=== PATIENT | female | born 1955 | race African-American/Black ===

== ENCOUNTER → 2017-12-18 | Outpatient (CLI) | payer BC ==
[~2017-12-18] VITALS: Ht 170.2 cm; Wt 68.0 kg
[~2017-12-18] MED LIST: ANASTROZOLE1 MG PO; CIPROFLOXACIN500 M1 PO; COREG CR10 MG PO; LANOXIN 0.120.125 M1 PO; LASIX 40 MG TAB40 M2 PO; LIPITOR10 MG PO; NORCO 5-325 TA1 EACH PO
--- NOTE | ~2017-12-18 | P ---
[facility] [place] [address] PROCEDURE REPORT Name: ALEN ALLISON Room #: REG [facility]#: [id number] Admission: 12/18/17 Attend Phys: Joe Watson MD Discharge: Date of : 59 Report #: [id number] THIS REPORT FOR: //name// CC: Joe Mosley PROCEDURE: ICD generator exchange. PREOPERATIVE DIAGNOSIS: Nonischemic cardiomyopathy. POSTOPERATIVE DIAGNOSIS: Nonischemic cardiomyopathy. HISTORY: The patient is a 62-year-old female with a history of a nonischemic cardiomyopathy, which was likely secondary to chemotherapy medications required for her breast cancer. Her ICD is at the elective replacement interval and she is here for generator exchange. ANESTHESIA: The patient underwent MAC anesthesia with no anesthesia related complications. DESCRIPTION OF PROCEDURE: The patient underwent informed consent. We discussed the details of the procedure including the risk, which include but not limited to bleeding, infection, need for possible lead revision. She understood these risks and is willing to proceed. As such, the patient was brought to the EP laboratory in a fasting and sedated state and prepped and draped in a sterile fashion. She received IV antibiotics prior to the initiation of the procedure. Next, I injected lidocaine at the prior incision site. Incision was made and the pocket was opened. The device was removed from the pocket and the leads were inspected and found to be in satisfactory condition. The new device was connected to the leads and tested and found to be functioning normally. The device was placed in the pocket and the pocket was irrigated with vancomycin and then, the pocket was closed in 3 layers using 2-0 for the deep layer, 3-0 for the mid layer and 4-0 for the subcuticular layer. Surgical glue was placed to the outer skin layer. There were no complications and no significant bleeding. The patient awoke neurologically hemodynamically intact with no complications. DEVICE INTERROGATION: The explanted device was a [employer] model #[id number], serial #[id number] originally implanted on 12/22/2008. The newly implanted device was a [employer] model #[id number], serial #[id number]. The RV lead was a [employer] model #7120, serial #[id number]. This lead was implanted on 12/22/2008. This lead demonstrated R-wave of 12 millivolts, pacing impedance of 390 ohms and the pacing threshold 1 volt at 0.6 milliseconds. The device was programmed to the VVI 40 mode. The VT1 zone was set at 150-180. The VT2 zone was set at 180-220 and the VF zone was set at greater than 220. The VT1 zone was a monitor zone. The VT2 zone had ATP x [address] [address] PROCEDURE REPORT Name: ALEN ALLISON [id number] Admission: 12/18/17 Attend Phys: Joe Watson MD Discharge: Date of : 59 Report #: [id number] followed by max output shocks. The VF zone had ATP while charging followed by max output shocks. CONCLUSIONS: 1. Successful ICD generator exchange. 2. Satisfactory right ventricular pacing and sensing thresholds. <ELECTRONICALLY SIGNED> By: Joe Watson MD 12/21/17 1622 1132 2323 Joe Watson MD /nt
[2017-12-18 08:01] VITALS: BP 95/75
[2017-12-18 08:23] LABS: ABSOLUTE NEUTROPHILS 2.5 thou/uL (1.4-8.2); BASOPHILS 1.2 % (0.0-2.0); EOSINOPHILS 1.4 % (0.0-3.0); HEMATOCRIT 35.2 % (37.0-47.0); HEMOGLOBIN 11.8 gm/dL (12.0-15.0); LYMPHOCYTES 35.7 % (24.0-44.0); MCH 29.5 pg (26.0-34.0); MCHC 33.6 g/dL (28.0-37.0); MCV 87.8 fL (80.0-100.0); MONOCYTES 9.2 % (1.0-8.0); PLATELET COUNT 277 thou/uL (150-400); POLYS 52.5 % (36.0-66.0); RBC 4.01 mil/uL (4.20-5.00); RDW 12.8 % (10.5-14.5); WBC 4.8 thou/uL (4.0-11.0)
[2017-12-18 08:25] LABS: CALCIUM 9.5 mg/dL (8.5-10.1); CREATININE 0.9 mg/dL (0.6-1.0)
[2017-12-18 08:31] LABS: ALBUMIN 3.7 g/dL (3.4-5.0); TOTAL BILIRUBIN 0.3 mg/dL (<0.1-1.0); TOTAL PROTEIN 7.4 g/dL (6.4-8.2)
[2017-12-18 08:32] LABS: APTT 24.7 Seconds (24.5-32.8); PROTIME 10.4 Seconds (9.3-11.4)
== END | disposition home or self-care (01) ==
LOC: CATH 07:04
PROVIDERS: Internal Medicine Cardiovascular Disease
DX: I42.9 Cardiomyopathy, unspecified (principal); Z85.3 Personal history of malignant neoplasm of breast; I49.9 Cardiac arrhythmia, unspecified; I50.9 Heart failure, unspecified; Z87.891 Personal history of nicotine dependence
CPT/HCPCS: 62110; 62900; 70005

== ENCOUNTER → 2019-08-16 | Outpatient (CLI) | payer BC | LOC: NUC 08-05 11:53 | DX: I42.8 Other cardiomyopathies (principal); I47.1 Supraventricular tachycardia; E78.5 Hyperlipidemia, unspecified; I50.9 Heart failure, unspecified; Z87.891 Personal history of nicotine dependence; Z79.899 Other long term (current) drug therapy ==

== ENCOUNTER 2020-05-08 21:34 | Inpatient (IN) | payer BC ==
[~2020-05-08] VITALS: Ht 170.2 cm; Wt 75.4 kg
[2020-05-08 21:35] VITALS: BP 133/84
[2020-05-08 22:30] LABS: ABSOLUTE NEUTROPHILS 2.2 thou/uL (1.4-8.2); BASOPHILS 1.2 % (0.0-2.0); EOSINOPHILS 2.4 % (0.0-3.0); HEMATOCRIT 37.8 % (37.0-47.0); HEMOGLOBIN 12.9 gm/dL (12.0-15.0); LYMPHOCYTES 46.1 % (24.0-44.0); MCH 30.2 pg (26.0-34.0); MCHC 34.2 g/dL (28.0-37.0); MCV 88.4 fL (80.0-100.0); MONOCYTES 8.4 % (1.0-8.0); PLATELET COUNT 189 thou/uL (150-400); POLYS 41.9 % (36.0-66.0); RBC 4.27 mil/uL (4.20-5.00); WBC 5.3 thou/uL (4.0-11.0)
[2020-05-08 22:42] LABS: ANION GAP 8 mmol/L (7-16); BUN 11 mg/dL (7-18); CALCIUM 9.5 mg/dL (8.5-10.1); CHLORIDE 101 mmol/L (98-107); CO2 29 mmol/L (21-32); CREATININE 0.9 mg/dL (0.6-1.0); GLUCOSE 110 mg/dL (74-106); SODIUM 138 mmol/L (136-145)
[2020-05-08 22:44] LABS: URINE BILIRUBIN NEGATIVE (Negative); URINE BLOOD NEGATIVE (Negative); URINE CLARITY CLEAR; URINE COLOR YELLOW; URINE GLUCOSE-RANDOM* NEGATIVE (Negative); URINE KETONES NEGATIVE (Negative); URINE NITRITE-REFLEX NEGATIVE (Negative); URINE PROTEIN (DIPSTICK) TRACE (Negative); URINE SPECIFIC GRAVITY 1.025 (1.005-1.035); URINE UROBILINOGEN 0.2 E.U./dl (0.2-1.0)
[2020-05-08 22:51] LABS: ALBUMIN 3.5 g/dL (3.4-5.0); SGOT 20 U/L (15-37); SGPT 21 U/L (30-65); TOTAL BILIRUBIN 0.3 mg/dL (0.2-1.0); TOTAL PROTEIN 7.5 g/dL (6.4-8.2); TROPONIN-I <0.06 ng/mL (<0.06)
[2020-05-08 22:57] LABS: BACTERIA-REFLEX 1-9 Few /HPF (None Seen); MUCUS 4-6 Moderate strn/LPF (None Seen); SQUAMOUS 4-10 Moderate /LPF (0-3); URINE LEUKOCYTES-REFLEX 2+ (Negative); URINE RBC 3-10 Few /HPF (0-2)
[2020-05-08 22:58] LABS: CRYSTALS None Seen /LPF (None Seen); HYALINE CASTS 0-3 Few /LPF (None Seen)
[2020-05-09] VITALS (8 sets, daily range): BP systolic 90–112; BP diastolic 60–75
--- NOTE | 2020-05-09 01:45 | NUR ---
PT IS AN ADMIT FROM EMERGENCY ROOM PT HAS A PACEMAKER. PACEMAKER INTERROGATED IN ER AND V-FIB NOTED. PT IS ALERT AND ORIENTED X4. LUNGS ARE CLEAR TO DIMINISHED. ABDOMEN IS SOFT. BOWEL SOUNDS ACTIVE. PT HAVE BEEN HAVEING WEAKNESS AND SYNOCOPE EPISODES PASSING OUT. KEPT NPO FOR THE SHIFT. PT REPORTS SHE SEES A SHIFT ENGINEER NO SURE WHICH ONE. PLEASANT. SCDS ON BILAERAL. NO CHEST PAIN NOTED. INSTRUCTED NOT TO GET OUT OF BED PLEASE USE A CALL LIGHT TO MAINTAIN PT SAFETY. VERBALIZES UNDERSTANDING TO PROVIDED SAFETY OF CARE WITH HOSPITALIZATION
--- NOTE | 2020-05-09 06:00 | NUR ---
WILL TRY TO OBATIAN RECORDS FROM PREVIOUS DATA INTEGRITY SPECIALIST SHE REPORTS SHE SEES AND CONSULT WAS NOTED AND CALLED IN ER.
[2020-05-09 06:45] LABS: CALCIUM 8.9 mg/dL (8.5-10.1); CREATININE 0.8 mg/dL (0.6-1.0); POTASSIUM 3.4 mmol/L (3.5-5.1)
--- NOTE | 2020-05-09 07:41 | EKG ---
[facility] [place] [address] ELECTROCARDIOGRAM REPORT Name: ALEN ALLISON Room #: 217-P ADM IN M.R.#: [id number] Admission: 05/08/20 Attend Phys: Anthony Ayoub MD Discharge: Date of : 59 Report #: [id number] THIS REPORT FOR: cc: LONDON SOMMERS Physician not on staff Prateek Hansen MD [facility] ~ THIS REPORT FOR: //name// [facility] ED Test Date: 2020-05-08 Test Time: 21:36:12 Pat Name: ALEN ALLISON Department: Room: [facility] Gender: F Tire Changer Aircraft: [facility] : 1955 Requested By: Rl Lentz Order Number: [id number] MD: Prateek Hansen Measurements Intervals [place] Rate: 95 P: IN: QRS: -34 QRSD: 107 T: 86 QT: 377 QTc: 474 Interpretive Statements Atrial fibrillation Left axis deviation Poor R wave progression Nonspecific T wave abnormality No previous ECG available for comparison Electronically Signed On 05-09-2020 7:40:35 CDT by Prateek Hansen [email or web address] <ELECTRONICALLY SIGNED> By: Prateek Hansen MD, FACC 05/09/20 0740 35 Prateek Hansen MD, [facility] /EPI
--- NOTE | 2020-05-09 10:01 | 2DMMODE ---
[facility] [address] [address] 2 D/M-MODE ECHOCARDIOGRAM Name: ALEN ALLISON Room #: 217-P ADM IN M.R.#: [id number] Admission: 05/08/20 Attend Phys: Anthony Ayoub MD Discharge: Date of : 59 Report #: [id number] THIS REPORT FOR: cc: LONDON SOMMERS Physician not on staff Prateek Hansen MD [facility] ~ APPROVED REPORT Study performed: 05/09/2020 08:50:33 EXAM: Comprehensive 2D, Doppler, and color-flow Echocardiogram Patient Location: Bedside Room #: 217 Status: routine BSA: 1.89 HR: 76 bpm BP: 107/70 mmHg Rhythm: Regular Other Information Study Quality: Adequate Indications Syncope status post Vfib with ICD shock. Hx: NICM, CHF, ICD, cancer, HTN, HLP. 2D Dimensions RVDd: 36.43 mm IVSd: 7.11 (7-11mm) LVOT Diam: 19.47 (18-24mm) LVDd: 54.73 mm PWd: 7.96 (7-11mm) Ascending Ao: 27.18 (22-36mm) LVDs: 47.09 (25-40mm) Aortic Root: 28.92 mm Volumes Left Atrial Volume (Systole) Single Plane 4CH: 84.79 mL Single Plane 2CH: 81.34 mL LA ESV Index: 48.00 mL/m2 Aortic Valve AoV Peak Ray.: 0.95 m/s AO Peak Gr.: 3.59 mmHg LVOT Max P.42 mmHg LVOT Max V: 0.60 m/s SUMAYA Vmax: 1.87 cm2 [facility] [address] [place] [address] 2 D/M-MODE ECHOCARDIOGRAM Name: ALEN ALLISON Room #: 217-P [facility]#: [id number] Admission: 05/08/20 Attend Phys: Anthony Ayoub MD Discharge: Date of : 59 Report #: [id number] Mitral Valve MV Decel. Time: 117.44 ms MV E Max Ray.: 1.08 m/s Pulmonary Valve PV Peak Ray.: 0.52 m/s PV Peak Gr.: 1.07 mmHg Tricuspid Valve TR Peak Ray.: 3.20 m/s RAP Estimate: 5.00 mmHg TR Peak Gr.: 41.00 mmHg PA Pressure: 46.00 mmHg Left Ventricle The left ventricle is normal size. There is global hypokinesis of the left ventricle. There is normal left ventricular wall thickness. Left ventricular systolic function is severely decreased. LVEF is 20-25%. This study is not technically sufficient to allow evaluation of the LV diastolic function. Right Ventricle The right ventricle is normal size. The right ventricular systolic function is normal. Device lead is present in the right ventricle. Atria Left atrium is moderately dilated. The right atrium size is normal. Aortic Valve The aortic valve is trileaflet, mildly sclerotic. Mild aortic regurgitation. There is no aortic valvular stenosis. Mitral Valve The mitral valve is normal in structure. Moderate mitral regurgitation. No evidence of mitral valve stenosis. Tricuspid Valve The tricuspid valve is normal in structure. Moderate tricuspid regurgitation. Estimated PAP is 45-50mmHg. Pulmonic Valve The pulmonary valve is normal in structure. Trace pulmonic regurgitation. Great Vessels The aortic root is normal in size. The ascending aorta is normal in [address] [address] 2 D/M-MODE ECHOCARDIOGRAM Name: ALEN ALLISON Room #: 217-P ADM IN M.R.#: [id number] Admission: 05/08/20 Attend Phys: Anthony Ayoub MD Discharge: Date of : 59 Report #: [id number] size. IVC is normal in size and collapses >50% with inspiration. Pericardium There is no pericardial effusion. <Conclusion> Left ventricular systolic function is severely decreased. There is global hypokinesis of the left ventricle. LVEF is 20-25%. Left atrium is moderately dilated. The aortic valve is trileaflet, mildly sclerotic. Mild aortic regurgitation. The mitral valve is normal in structure. Moderate to moderately severe mitral regurgitation. Moderate tricuspid regurgitation. Estimated pulmonary artery pressure of 45-50mmHg. There is no pericardial effusion. <ELECTRONICALLY SIGNED> By: Prateek Hansen MD, FACC 05/09/20 1000 1000 1000 Prateek Hansen MD, FACC /INF
--- NOTE | 2020-05-09 16:20 | CATHLAB ---
[facility] [address] [place] [address] INVASIVE PROCEDURE REPORT Name: ALEN ALLISON Room #: 217-P ADM IN M.R.#: [id number] Admission: 05/08/20 Attend Phys: Anthony Ayoub MD Discharge: Date of : 59 Report #: [id number] THIS REPORT FOR: cc: LONDON SOMMERS Physician not on staff Jose R Tlobert MD ~ APPROVED REPORT Study performed: 05/09/2020 13:35:19 Patient Details Patient Status: In-Patient Room #: The patient is a 65 year-old female Event Personnel Jose R Tolbert Wind Projects Supervisor, Mookie Lynch RN, Kimber Gary RTR Miky Orantes Roberta Monitor Procedures Performed Art Access - R femoral artery* Left Heart Cath w/or w/o Coronaries [id number] [facility] Hemostasis with Manual pressure 41567 Initial Mod Sed Same Phys/QHP Gr5y 417945 96083 Initial Mod Sed Same Phys/QHP Gr5y 386895 36436 Mod Sed Same Phys/QHP 295462 Indication Arrhythmia, Dyspnea, Syncope, Cardiomyopathy, The patient presented with syncope attributed to VF status post ICD discharge. Risk Factors Hypercholesterolemia, Hypertension Admission/Lab Medications/Medications given during procedure Oxygen Nasal cannula 2 l per min, Oxygen Nasal cannula 2 l per min, Oxygen Nasal cannula 2 l per min, Oxygen Nasal cannula 2 l per min, Oxygen Nasal cannula 2 l per min, Oxygen Nasal cannula 2 l per min, Oxygen Nasal cannula 2 l per min, Oxygen Nasal cannula 2 l per min, Oxygen Nasal cannula 2 l per min Procedure Narrative The Right Groin^ was infiltrated with 1% Lidocaine subcutaneous anesthesia. A PINNACLE 4FR Sheath #[id number] sheath was inserted into the RFA 4F^. Coronary angiography was performed using coronary diagnostic catheters. The right coronary system was accessed and visualized with a JR4 catheter. The left coronary system was accessed [facility] [place] [address] INVASIVE PROCEDURE REPORT Name: KEEGANALEN PURVI Room #: 217-P [facility]#: [id number] Admission: 05/08/20 Attend Phys: Anthony Ayoub MD Discharge: Date of : 59 Report #: [id number] and visualized with a JL4 catheter. The left ventricle was accessed and visualized with a ANGLE PIG catheter. Left ventriculogram was performed in 30 degree projection. Hemostasis was obtained with manual pressure following sheath removal without any complications. The patient tolerated the procedure well and there were no complications associated with the procedure. There was no hematoma. Intraoperative Conscious Sedation Sedation start time: 1414 Case end Time: 1440 Fentanyl 50 mcg Versed 1.5 mg Fluoro Time: 942.00 minutes Dose: DAP 3214.00 cGycm2 942 mGy Contrast Type and Amount: Omnipaque 65 ml Coronary Angiography The patient's coronary anatomy is right dominant. Diagnostic Cath Left Main The left main artery appears angiographically normal. LAD The LAD is a moderate-sized caliber vessel, traverses the anterior wall and wraps around the apex. Appears angiographically normal. Diagonal 1 There is a small caliber vessel, with no flow-limiting lesions. Circumflex Supplies 1 moderate-sized OM vessel. OM1 Divides into multiple branches as it travels the lateral wall. Appears angiographically normal. Right Coronary The RCA is a dominant vessel, appears angiographically normal. R PDA This is a moderate-sized caliber vessel, appears angiographically normal. RPLV This is a moderate-sized caliber vessel, appears angiographically normal. Left Ventriculography The left ventricle is mildly dilated in size with Decreased contractility. The left ventricular ejection fraction is estimated to be 15-20%. Hemodynamics The aortic pressure is 113/66 mmHg with a mean of 55 mmHg. The left ventricular pressure is 108/14 mmHg with a mean of mmHg. [facility] [address] [place] [address] INVASIVE PROCEDURE REPORT Name: ALEN ALLISON Room #: 217-P [facility] IN ..#: [id number] Admission: 05/08/20 Attend Phys: Anthony Ayoub MD Discharge: Date of : 59 Report #: [id number] Conclusion 1. Severe, nonischemic cardiomyopathy. 2. Angiographically normal coronary arteries. 3. Guideline directed medical therapy. <ELECTRONICALLY SIGNED> By: Jose R Tolbert MD 05/09/20 161 18 18 Jose R Tolbert MD /INF
--- NOTE | 2020-05-09 17:51 | NUR ---
PATIENT IS ALERT ORIENTED X4. DOES NOT SEEM TO BE IN PAIN OR DISTRESS. PLEASANT WITH CARES. WENT TO [facility] BUT NO STENTS PLACED. NO BLEEDING NOTED TO ACCESS SITE. WILL CONT WITH PLAN OF CRE.
[2020-05-10 05:37] LABS: HEMATOCRIT 37.6 % (37.0-47.0); HEMOGLOBIN 12.4 gm/dL (12.0-15.0); MCH 29.6 pg (26.0-34.0); MCHC 33.1 g/dL (28.0-37.0); MCV 89.6 fL (80.0-100.0); RBC 4.2 mil/uL (4.20-5.00); RDW 13.1 % (10.5-14.5); WBC 4.8 thou/uL (4.0-11.0)
[2020-05-10 05:58] LABS: CALCIUM 8.8 mg/dL (8.5-10.1); CREATININE 0.9 mg/dL (0.6-1.0); POTASSIUM 3.5 mmol/L (3.5-5.1)
--- NOTE | 2020-05-10 07:42 | EKG ---
[facility] [place] [address] ELECTROCARDIOGRAM REPORT Name: ALEN ALLISON Room #: 217-P ADM IN M.R.#: [id number] Admission: 05/08/20 Attend Phys: Anthony Ayoub MD Discharge: Date of : 59 Report #: [id number] THIS REPORT FOR: cc: LONDON SOMMERS Physician not on staff Prateek Hansen MD [facility] ~ THIS REPORT FOR: //name// [facility] Test Date: 2020-05-10 Test Time: 07:23:57 Pat Name: ALEN ALLISON Department: Room: 217 P Gender: F Publications Inspector: Kassidy LEWIS : 1955 Requested By: Fany King Order Number: [id number] MD: Prateek Hansen Measurements Intervals [place] Rate: 71 P: 64 GA: 194 QRS: -40 QRSD: 103 T: 90 QT: 431 QTc: 469 Interpretive Statements Sinus rhythm Left atrial enlargement Left axis deviation Poor R wave progression Nonspecific T wave abnormality Compared to ECG 05/08/2020 21:36:12 Sinus rhythm has replaced atrial fibrillation Electronically Signed On 05-10-2020 7:42:07 CDT by Prateek Hansen [email or web address] <ELECTRONICALLY SIGNED> By: Prateek Hansen MD, [facility] 05/10/20 0742 2 2 Prateek Hansen MD, [facility] /EPI
[2020-05-10 08:02] VITALS: BP 93/64
--- NOTE | 2020-05-10 10:37 | NUR ---
chart review. report from bedside nurse. cm tried calling pt x 2 in room no answer. noted from chart pt a & o, able to make her needs know. per report will monitor pt with change in medication prior to dc home. will cont following as needed for dc needs.
[2020-05-10 12:05] VITALS: BP 97/66
[2020-05-10 16:21] VITALS: BP 126/105
[2020-05-10 19:36] VITALS: BP 100/70
--- NOTE | 2020-05-10 20:26 | NUR ---
ASSUMMED PT ARE AT APPROXIMATELY 0700. PT A&O X4. ASSESSMENT CHARTED. FALL PRECAUTIONS IN PLACE. PT DENIES HAVING CHEST PAIN. PT DENIES HAVING SOB. PT DENIES HAVING ACUTE PAIN. VITAL SIGNS STABLE. EDUCATED PT AND PT'S FAMILY ABOUT POC. PT AND PT'S FAMILY STATED UNDERSTANDING AND DENIED HAVING FURTHER QUESTIONS. INFORMED EVELYNE XAVIER OF PT'S RUN OF VTA. EVELYNE XAVIER STATED UNDERSTANDING AND STATED NO NEW ORDERS. PT COMFORTABLE. PT DENIES HAVING FURTHER CONCERNS.
[2020-05-10 23:10] VITALS: BP 98/70
--- NOTE | 2020-05-11 00:23 | NUR ---
NO CONCERNS AT THIS TIME. PT ALERT AND ORIENTED. VSS, WITH SLIGHT SOFT BP BUT MAP STABLE. DENIES CONCERNS. NO DIZZINESS, SOB OR CHEST PALPITATIONS. SR ON THE MONITOR. WILL CONTINUE TO MONITOR.
[2020-05-11 03:52] VITALS: BP 94/66
[2020-05-11 05:29] LABS: HEMOGLOBIN 12.9 gm/dL (12.0-15.0); MCH 29.4 pg (26.0-34.0); MCHC 33.2 g/dL (28.0-37.0); MCV 88.8 fL (80.0-100.0); RBC 4.39 mil/uL (4.20-5.00); WBC 5.1 thou/uL (4.0-11.0)
[2020-05-11 05:46] LABS: CALCIUM 9.2 mg/dL (8.5-10.1); CREATININE 1.1 mg/dL (0.6-1.0); POTASSIUM 3.5 mmol/L (3.5-5.1)
[2020-05-11 07:55] VITALS: BP 99/71
[2020-05-11] MEDS ORDERED: SORINE 80 MG TA80 M1 PO (08:02)
[2020-05-11] MEDS ORDERED: CARVEDILOL3.125 MG PO (08:02)
[2020-05-11] MEDS ORDERED: K-DUR 20 MEQ T20 MEQ PO (08:02)
[2020-05-11 08:15] VITALS: BP 99/71
[2020-05-11 10:42] VITALS: BP 99/71
--- NOTE | 2020-05-11 11:07 | NUR ---
PT CARE ASSUMED AT 0700. ASSESSMENT CHARTED. MEDICATION CHARTED. PT IS DISCHARGED TO HOME. IV D/C'D. TELEMETRY D/C'D. PT DENIES PAIN. VSS.
--- NOTE | 2020-05-12 11:48 | EKG ---
[facility] [place] [address] ELECTROCARDIOGRAM REPORT Name: ALEN ALLISON Room #: 217-[facility] IN M.R.#: [id number] Admission: 05/08/20 Attend Phys: Anthony Ayoub MD Discharge: 05/11/20 Date of : 59 Report #: [id number] THIS REPORT FOR: cc: LONDON SOMMERS Physician not on staff Joe Watson MD ~ THIS REPORT FOR: //name// [facility] Test Date: 2020-05-11 Test Time: 07:45:21 Pat Name: ALEN ALLISON Department: Room: 217 Gender: F Automobile Parts Assembler: Barbara MCLEAN : 1955 Requested By: Fany King Order Number: [id number] MD: Joe Watson Measurements Intervals [place] Rate: 70 P: 70 CO: 208 QRS: -31 QRSD: 87 T: 59 QT: 539 QTc: 582 Interpretive Statements Sinus rhythm Left atrial enlargement Left axis deviation Borderline low voltage, extremity leads Consider anterior infarct Prolonged QT interval Compared to ECG 05/10/2020 07:23:57 Electronically Signed On 05-12-2020 11:47:04 CDT by Joe Watson [email or web address] <ELECTRONICALLY SIGNED> By: Joe Watson MD 05/12/20 1147 0745 0745 Joe Watson MD /EPI
== END 2020-05-11 11:35 | disposition home or self-care (01) | DRG 286 ==
LOC: ER 21:34 → EROBS 23:49 → 2N 23:49
PROVIDERS: Emergency Medicine; Nurse Practitioner; Nurse Practitioner Family; ADMIT Hospitalist; ATTEND Hospitalist
PROC: 4A023N7 Measurement of Cardiac Sampling and Pressure, Left Heart, Percutaneous Approach (ICD-10-PCS; principal; 2020-05-08)
PROC: B2151ZZ Fluoroscopy of Left Heart using Low Osmolar Contrast (ICD-10-PCS; principal; 2020-05-08)
PROC: B2111ZZ Fluoroscopy of Multiple Coronary Arteries using Low Osmolar Contrast (ICD-10-PCS; principal; 2020-05-08)
DX: I49.01 Ventricular fibrillation (principal); I50.23 Acute on chronic systolic (congestive) heart failure; I42.8 Other cardiomyopathies; I11.0 Hypertensive heart disease with heart failure; E78.5 Hyperlipidemia, unspecified; E87.6 Hypokalemia; Z20.828 Contact with and (suspected) exposure to other viral communicable diseases; I48.0 Paroxysmal atrial fibrillation; Z86.718 Personal history of other venous thrombosis and embolism; Z79.01 Long term (current) use of anticoagulants; Z79.899 Other long term (current) drug therapy; Z87.891 Personal history of nicotine dependence; Z95.810 Presence of automatic (implantable) cardiac defibrillator; Z90.11 Acquired absence of right breast and nipple; Z86.711 Personal history of pulmonary embolism
CPT/HCPCS: 10081

== ENCOUNTER 2020-05-12 22:17 | Emergency (ER) | payer BC ==
[~2020-05-12] VITALS: Ht 170.2 cm; Wt 77.1 kg
[~2020-05-12 22:17] MED LIST changes: +CARVEDILOL3.125 MG PO; +K-DUR 20 MEQ T20 MEQ PO; +SORINE 80 MG TA80 M1 PO
[2020-05-12 23:04] LABS: ABSOLUTE NEUTROPHILS 2.4 thou/uL (1.4-8.2); BASOPHILS 1.3 % (0.0-2.0); EOSINOPHILS 2.3 % (0.0-3.0); HEMATOCRIT 38.7 % (37.0-47.0); HEMOGLOBIN 12.9 gm/dL (12.0-15.0); LYMPHOCYTES 43.7 % (24.0-44.0); MCH 29.9 pg (26.0-34.0); MCHC 33.4 g/dL (28.0-37.0); MCV 89.5 fL (80.0-100.0); MONOCYTES 10.7 % (1.0-8.0); PLATELET COUNT 225 thou/uL (150-400); RBC 4.33 mil/uL (4.20-5.00); RDW 12.9 % (10.5-14.5); WBC 5.7 thou/uL (4.0-11.0)
[2020-05-12 23:05] LABS: URINE BILIRUBIN NEGATIVE (Negative); URINE BLOOD NEGATIVE (Negative); URINE CLARITY CLEAR; URINE COLOR YELLOW; URINE GLUCOSE-RANDOM* NEGATIVE (Negative); URINE KETONES NEGATIVE (Negative); URINE NITRITE-REFLEX NEGATIVE (Negative); URINE PROTEIN (DIPSTICK) NEGATIVE (Negative); URINE SPECIFIC GRAVITY 1.025 (1.005-1.035); URINE UROBILINOGEN 0.2 E.U./dl (0.2-1.0)
[2020-05-12 23:06] LABS: URINE LEUKOCYTES-REFLEX 2+ (Negative)
[2020-05-12 23:19] LABS: BACTERIA-REFLEX 1-9 Few /HPF (None Seen); CASTS None Seen /LPF (None Seen); CRYSTALS None Seen /LPF (None Seen); MUCUS 0-3 Light strn/LPF (None Seen); SQUAMOUS None Seen /LPF (0-3); URINE RBC None Seen /HPF (0-2); URINE WBC-REFLEX 6-15 Few /HPF (0-5)
[2020-05-12 23:20] LABS: ANION GAP 9 mmol/L (7-16); BUN 15 mg/dL (7-18); CALCIUM 8.9 mg/dL (8.5-10.1); CHLORIDE 104 mmol/L (98-107); CO2 26 mmol/L (21-32); CREATININE 0.9 mg/dL (0.6-1.0); GLUCOSE 97 mg/dL (74-106); POTASSIUM 3.8 mmol/L (3.5-5.1); SODIUM 139 mmol/L (136-145)
[2020-05-12 23:31] LABS: ALBUMIN 3.5 g/dL (3.4-5.0); DIRECT BILIRUBIN < 0.1 mg/dL (<0.1-0.2); SGOT 27 U/L (15-37); SGPT 30 U/L (30-65); TOTAL BILIRUBIN 0.3 mg/dL (0.2-1.0); TROPONIN-I <0.06 ng/mL (<0.06)
[2020-05-13] MEDS ORDERED: KEFLEX500 M1 PO (00:38)
[2020-05-13 00:49] VITALS: BP 107/72
--- NOTE | 2020-05-13 11:03 | EKG ---
[facility] [place] [address] ELECTROCARDIOGRAM REPORT Name: ALEN ALLISON Room #: DEP [facility]#: [id number] Admission: 05/12/20 Attend Phys: Discharge: 05/13/20 Date of : 59 Report #: [id number] THIS REPORT FOR: cc: LONDON SOMMERS - Family physician unknown Joe Watson MD ~ THIS REPORT FOR: //name// [facility] ED Test Date: 2020-05-12 Test Time: 22:31:48 Pat Name: ALEN ALLISON Department: Room: Gender: F Engraver Picture: [employer] : 1955 Requested By: Nina Khan Order Number: [id number] MD: Joe Watson Measurements Intervals [place] Rate: 80 P: 72 IL: 213 QRS: -42 QRSD: 97 T: 58 QT: 480 QTc: 480 Interpretive Statements Sinus rhythm Borderline prolonged IL interval Left atrial enlargement Left axis deviation Probable anterior infarct, old Compared to ECG 05/11/2020 07:45:21 No significant changes Electronically Signed On 05-13-2020 11:02:51 CDT by Joe Watson [email or web address] <ELECTRONICALLY SIGNED> By: Joe Watson MD 05/13/20 1102 30 30 Joe Watson MD /EPI
== END 2020-05-13 00:50 | disposition home or self-care (01) ==
LOC: ER 22:17
PROVIDERS: Emergency Medicine
DX: N39.0 Urinary tract infection, site not specified (principal); I45.81 Long QT syndrome; R53.1 Weakness; I48.91 Unspecified atrial fibrillation; I50.9 Heart failure, unspecified; E78.5 Hyperlipidemia, unspecified; Z86.73 Personal history of transient ischemic attack (TIA), and cerebral infarction without residual deficits; Z87.891 Personal history of nicotine dependence; Z79.899 Other long term (current) drug therapy

== ENCOUNTER 2021-05-15 18:40 | Emergency (ER) | payer BC ==
[~2021-05-15] VITALS: Ht 170.2 cm; Wt 71.7 kg
[~2021-05-15 18:40] MED LIST changes: +KEFLEX500 M1 PO
[2021-05-15 18:42] VITALS: BP 108/74
[2021-05-15] MEDS ORDERED: XOPENEX HFA15 GM INH (19:02)
== END 2021-05-15 19:35 | disposition home or self-care (01) ==
LOC: ER 18:40
DX: J45.909 Unspecified asthma, uncomplicated (principal); I50.9 Heart failure, unspecified; I48.91 Unspecified atrial fibrillation; F17.210 Nicotine dependence, cigarettes, uncomplicated; Z85.3 Personal history of malignant neoplasm of breast; Z91.048 Other nonmedicinal substance allergy status

== ENCOUNTER 2021-07-05 21:22 | Inpatient (IN) | payer BC ==
[~2021-07-05] VITALS: Ht 170.2 cm; Wt 72.7 kg
--- NOTE | ~2021-07-05 | EKG ---
[address] [place] [address] ELECTROCARDIOGRAM REPORT Name: ALEN ALLISON Room #: 246-P ADM IN M.R.#: [id number] Admission: 07/06/21 Attend Phys: Jacquelyn Andrade Discharge: Date of : 59 Report #: [id number] [facility] Test Date: 2021-07-09 Test Time: 00:38:54 Pat Name: ALEN ALLISON Department: Room: 246 P Gender: F Maintenance Of Way Superintendent: KEN : 1955 Requested By: Jacquelyn Andrade Order Number: [id number] MD: Measurements Intervals [place] Rate: 131 P: -65 VT: 82 QRS: 259 QRSD: 107 T: 9 QT: 351 QTc: 519 Interpretive Statements Sinus or ectopic atrial tachycardia Abnormal lateral Q waves Anterior infarct, old Prolonged QT interval Compared to ECG 07/08/2021 07:51:46 Q waves now present Myocardial infarct finding now present Prolonged QT interval now present Atrial flutter no longer present Left-axis deviation no longer present Poor R-wave progression no longer present [email or web address] By: [id number] [id number] Epiphany Epiphany, [place] /EPI
--- NOTE | ~2021-07-05 | EKG ---
[place] [address] [facility] [place] [address] ELECTROCARDIOGRAM REPORT Name: ALEN ALLISON PURVI Room #: 246-P ADM IN M.R.#: [id number] Admission: 07/06/21 Attend Phys: Jacquelyn Andrade Discharge: Date of : 59 Report #: [id number] [facility] Test Date: 2021-07-09 Test Time: 00:38:54 Pat Name: ALEN ALLISON Department: Room: 246 P Gender: F Application Security Developer: KEN : 1955 Requested By: [place] Order Number: [id number] MD: Measurements Intervals [place] Rate: 131 P: -65 CT: 82 QRS: 259 QRSD: 107 T: 9 QT: 351 QTc: 519 Interpretive Statements Sinus or ectopic atrial tachycardia Abnormal lateral Q waves Anterior infarct, old Prolonged QT interval Compared to ECG 07/08/2021 07:51:46 Q waves now present Myocardial infarct finding now present Prolonged QT interval now present Atrial flutter no longer present Left-axis deviation no longer present Poor R-wave progression no longer present [email or web address] By: 0038 0038 Epiphany Epiphany, [place] /EPI
[~2021-07-05 21:22] MED LIST changes: +XOPENEX HFA15 GM INH
[2021-07-05 21:23] VITALS: BP 112/62
[2021-07-05 23:16] LABS: ABSOLUTE NEUTROPHILS 6.2 thou/uL (1.4-8.2); BASOPHILS 0.6 % (0.0-2.0); EOSINOPHILS 0.1 % (0.0-3.0); HEMATOCRIT 41.4 % (37.0-47.0); HEMOGLOBIN 13.5 gm/dL (12.0-15.0); LYMPHOCYTES 12.9 % (24.0-44.0); MCH 29.7 pg (26.0-34.0); MCHC 32.5 g/dL (28.0-37.0); MCV 91.4 fL (80.0-100.0); MONOCYTES 12.6 % (1.0-8.0); PLATELET COUNT 178 thou/uL (150-400); POLYS 73.8 % (36.0-66.0); RBC 4.53 mil/uL (4.20-5.00); RDW 16.5 % (10.5-14.5); WBC 8.3 thou/uL (4.0-11.0)
[2021-07-05 23:19] LABS: ANION GAP 12 mmol/L (7-16); BUN 13 mg/dL (7-18); CALCIUM 8.4 mg/dL (8.5-10.1); CHLORIDE 101 mmol/L (98-107); CO2 26 mmol/L (21-32); CREATININE 0.8 mg/dL (0.6-1.0); GLUCOSE 130 mg/dL (74-106); POTASSIUM 3.4 mmol/L (3.5-5.1); SODIUM 139 mmol/L (136-145)
[2021-07-05 23:30] LABS: ALBUMIN 2.9 g/dL (3.4-5.0); LIPASE 96 U/L (73-393); SGOT 40 U/L (15-37); SGPT 44 U/L (30-65); TOTAL PROTEIN 6.1 g/dL (6.4-8.2); TROPONIN-I <0.06 ng/mL (<0.06)
[2021-07-06] VITALS (26 sets, daily range): BP systolic 75–102; BP diastolic 53–75
[2021-07-06] MEDS ORDERED: LIPITOR 20 MG T20 M1 PO (04:20)
--- NOTE | 2021-07-06 06:55 | NUR ---
Called to give report. Was told someone will call back because nobody knew who was taking pt
--- NOTE | 2021-07-06 06:56 | NUR ---
Handoff sent at 06:48
[2021-07-06 07:04] LABS: CHOLESTEROL 100 mg/dL (<200); HDL CHOLESTEROL 27 mg/dL (>40); LDL CHOLESTEROL 60 mg/dL (<100); TC:HDL 3.7 Ratio (Not establshd); TRIGLYCERIDE 66 mg/dL (<150); VLDL 13 mg/dL (<40)
[2021-07-06 07:06] LABS: SERUM ASSESSMENT Clear
[2021-07-06 07:08] LABS: DIRECT BILIRUBIN 1.3 mg/dL (<0.1-0.2); TOTAL BILIRUBIN 2.5 mg/dL (0.2-1.0); TROPONIN-I <0.06 ng/mL (<0.06)
--- NOTE | 2021-07-06 07:10 | NUR ---
TOOK OVER REPORT FROM CONY CRESPO, AT THIS TIME
[2021-07-06 07:11] LABS: ALBUMIN 2.8 g/dL (3.4-5.0); CALCIUM 9.1 mg/dL (8.5-10.1); CREATININE 0.9 mg/dL (0.6-1.0); POTASSIUM 3.5 mmol/L (3.5-5.1); TOTAL BILIRUBIN 2.5 mg/dL (0.2-1.0); TOTAL PROTEIN 5.8 g/dL (6.4-8.2)
--- NOTE | 2021-07-06 07:48 | NUR ---
REPORT GIVEN TO CHERIE JOSUE AT THIS TIME. PT STABLE AND READY FOR TRANSFER
[2021-07-06 08:58] LABS: URINE BILIRUBIN NEGATIVE (Negative); URINE BLOOD TRACE (Negative); URINE CLARITY CLEAR; URINE COLOR YELLOW; URINE GLUCOSE-RANDOM* NEGATIVE (Negative); URINE KETONES NEGATIVE (Negative); URINE LEUKOCYTES-REFLEX TRACE (Negative); URINE NITRITE-REFLEX NEGATIVE (Negative); URINE PROTEIN (DIPSTICK) NEGATIVE (Negative); URINE SPECIFIC GRAVITY <= 1.005 (1.005-1.035)
--- NOTE | 2021-07-06 09:52 | EKG ---
[place] [address] [place] [address] ELECTROCARDIOGRAM REPORT Name: ALEN ALLISON Room #: 214-P ADM IN M.R.#: [id number] Admission: 07/06/21 Attend Phys: Jacquelyn Andrade Discharge: Date of : 59 Report #: [id number] [facility] ED Test Date: 2021-07-05 Test Time: 22:22:50 Pat Name: ALEN ALLISON Department: Room: 214 Gender: F Bottle Carrier: CELINA : 1955 Requested By: Scot Damon Order Number: [id number] MD: Jose R Tolbert Measurements Intervals [place] Rate: 91 P: 72 NM: 208 QRS: -58 QRSD: 99 T: QT: 405 QTc: 499 Interpretive Statements Sinus rhythm Borderline prolonged NM interval Left atrial enlargement LAD, consider left anterior fascicular block Low voltage, extremity and precordial leads Probable anteroseptal infarct, old Nonspecific T abnormalities, lateral leads Compared to ECG 05/12/2020 22:31:48 Low QRS voltage now present T-wave abnormality now present Left-axis deviation no longer present Myocardial infarct finding still present Electronically Signed On 07-06-2021 9:52:13 CDT by Jose R Tolbert [email or web address] <ELECTRONICALLY SIGNED> By: Jose R Tolbert MD 07/06/21951 21 21 Jose R Tolbert MD /EPI
--- NOTE | 2021-07-06 10:13 | 2DMMODE ---
[facility] [place] [address] 2 D/M-MODE ECHOCARDIOGRAM Name: ALEN ALLISON Room #: 214-P ADM IN M.R.#: [id number] Admission: 07/06/21 Attend Phys: Jacquelyn Andrade Discharge: Date of : 59 Report #: [id number] THIS REPORT FOR: cc: LONDON SOMMERS MD Physician not on staff Jose R Tolbert MD ~ APPROVED REPORT Study performed: 07/06/2021 07:54:33 EXAM: Comprehensive 2D, Doppler, and color-flow Echocardiogram Patient Location: ER Status: on-call BSA: 1.72 HR: 86 bpm BP: 90/60 mmHg Rhythm: Irregular Other Information Study Quality: Good Indications Chest pain. Hx: NISCM, CHF, AICD. 2D Dimensions RVDd: 37.51 mm IVSd: 8.25 (7-11mm) LVOT Diam: 18.99 (18-24mm) LVDd: 53.69 mm PWd: 8.26 (7-11mm) Ascending Ao: 27.82 (22-36mm) LVDs: 50.18 (25-40mm) Left Atrium: 41.77 (27-40mm) Aortic Root: 25.34 mm Volumes Left Atrial Volume (Systole) Single Plane 4CH: 92.20 mL Single Plane 2CH: 91.91 mL LA ESV Index: 59.00 mL/m2 Aortic Valve AoV Peak Ray.: 0.84 m/s AO Peak Gr.: 2.84 mmHg LVOT Max P.68 mmHg LVOT Max V: 0.65 m/s [facility] [address] [address] 2 D/M-MODE ECHOCARDIOGRAM Name: ALEN ALLISON Room #: 214-P [facility] IN [facility]#: [id number] Admission: 07/06/21 Attend Phys: Jacquelyn De La Rosa Discharge: Date of : 59 Report #: [id number] SUMAYA Vmax: 2.18 cm2 Mitral Valve MV Decel. Time: 133.53 ms MV E Max Ray.: 0.71 m/s Pulmonary Valve PV Peak Ray.: 0.44 m/s PV Peak Gr.: 0.76 mmHg Tricuspid Valve TR Peak Ray.: 2.75 m/s RAP Estimate: 10.00 mmHg TR Peak Gr.: 30.14 mmHg PA Pressure: 40.00 mmHg Left Ventricle The left ventricle is normal size. There is normal left ventricular wall thickness. Left ventricular systolic function is severely decreased. LVEF is 20%. Grade IV - fixed restrictive diastolic dysfunction. Right Ventricle The right ventricle is normal size. Right ventricle is mildly hypokinetic. Device lead is present in the right ventricle. Atria Severe biatrial enlargement. Aortic Valve The aortic valve is normal in structure; mildly calcified. Mild aortic regurgitation. There is no aortic valvular stenosis. Mitral Valve Mitral valve leaflets are thickened. Mild to moderate mitral regurgitation. No evidence of mitral valve stenosis. Tricuspid Valve The tricuspid valve is normal in structure. Moderate tricuspid regurgitation. Estimated PAP is 40mmHg. Pulmonic Valve The pulmonary valve is normal in structure. Trace pulmonic regurgitation. Great Vessels The aortic root is normal in size. The ascending aorta is normal in size. 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 Pericardium There is no pericardial effusion. <Conclusion> The left ventricle is normal size. Left ventricular systolic function is severely decreased. The right ventricle is normal size. Device lead is present in the right ventricle. Severe biatrial enlargement. Mild aortic regurgitation. Mild to moderate mitral regurgitation. Moderate tricuspid regurgitation. Estimated PAP is 40mmHg. <ELECTRONICALLY SIGNED> By: Jose R Tolbert MD 07/06/21 1013 1013 1013 Jose R Tolbert MD /INF
--- NOTE | 2021-07-06 17:36 | NUR ---
Pt. with C/O CP-TUMBLER PLATER activated-see flowsheet
[2021-07-07] VITALS (18 sets, daily range): BP systolic 80–103; BP diastolic 59–76
--- NOTE | 2021-07-07 03:25 | NUR ---
ASSUMED PT CARE AT 1900, PT IS AWAKE, ALERT AND ORIENTEDX4, DAUGHTER AT BEDSIDE, PT BP STILL SOFT IN THE 70S SYSTOLIC WITH MAP >60, PTY ASSYMPTOMATIC, LIVING ADVISOR NOTIFIED, NO ORDERS RECEIVED, DR. CHAPPELL NOTIFIED WELL, ORDERS RECEIVED FOR 500ML BOLUS, PT TAKEN TO CT WITH PERSONNEL SCHEDULER, PT TOLERATED WELL, PT BP UP IN THE 90S SYSTOLIC, PT HAD C/O CHEST PAIN AT 9/10, TYL GIVEN WITH COMPLETE RELIEF, ASESSMENTS CHARTED, BP HOLDING IN THE 90S SYSTOLIC WITH MAP>90, PT IS SLEEPING WITH NO COPLAINS AT THIS TIME, BP RECHECKED [id number] AT THIS TIME, FREQUENT ROUNDING AND MONITORING MAINTAINED, ASSESSMENTS CHARTED, MEDS GIVEN PER JAN, WILL CONTINUE TO MONITOR
[2021-07-07 06:06] LABS: HAV IgM AB (ANTI-HAV IgM) Negative (Negative); HEPATITIS B SURFACE AG Negative (Negative); HEPATITIS C VIRUS AB <0.1 (0.0-0.9)
--- NOTE | 2021-07-07 09:31 | EKG ---
[address] [place] [address] ELECTROCARDIOGRAM REPORT Name: ALEN ALLISON Room #: 203- ADM IN M.R.#: [id number] Admission: 07/06/21 Attend Phys: Jacquelyn Andrade Discharge: Date of : 59 Report #: [id number] [facility] Test Date: 2021-07-06 Test Time: 21:59:57 Pat Name: ALEN ALLISON Department: Room: 203 P Gender: F Bereavement Counselor: GHANSHYAM : 1955 Requested By: Jacquelyn Andrade Order Number: [id number] MD: Jose R Tolbert Measurements Intervals [place] Rate: 91 P: -15 ND: 249 QRS: -70 QRSD: 79 T: QT: 408 QTc: 503 Interpretive Statements Sinus rhythm Left atrial enlargement LAD, consider left anterior fascicular block Anterior infarct, old Nonspecific T abnormalities, lateral leads Prolonged QT interval Compared to ECG 07/06/2021 16:35:18 Atrial abnormality now present T-wave abnormality now present Myocardial infarct finding still present Electronically Signed On 07-07-2021 9:31:43 CDT by Jose R Tolbert [email or web address] <ELECTRONICALLY SIGNED> By: Jose R Tolbert MD 07/07/21 0931 2159 2159 Jose R Tolbert MD /EPI
--- NOTE | 2021-07-07 09:33 | EKG ---
[address] [place] [address] ELECTROCARDIOGRAM REPORT Name: ALEN ALLISON Room #: 203-P ADM IN M.R.#: [id number] Admission: 07/06/21 Attend Phys: Jacquelyn Andrade Discharge: Date of : 59 Report #: [id number] [facility] Test Date: 2021-07-06 Test Time: 16:35:18 Pat Name: ALEN ALLISON Department: Room: 203 Gender: F Stunt Woman: JOSE : 1955 Requested By: Jacquelyn Andrade Order Number: [id number] MD: Jose R Tolbert Measurements Intervals [place] Rate: 103 P: 264 ID: 136 QRS: -65 QRSD: 96 T: 242 QT: 448 QTc: 587 Interpretive Statements Sinus tachycardia LAD, consider left anterior fascicular block Anteroseptal infarct, age indeterminate Prolonged QT interval Compared to ECG 07/06/2021 02:07:35 Ectopic atrial rhythm no longer present T-wave abnormality no longer present Myocardial infarct finding still present Electronically Signed On 07-07-2021 9:33:05 CDT by Jose R Tolbert [email or web address] <ELECTRONICALLY SIGNED> By: Jose R Tolbert MD 07/07/21 0933 1635 1635 Jose R Tolbert MD /EPI
--- NOTE | 2021-07-07 09:34 | EKG ---
[place] [address] [employer] [place] [address] ELECTROCARDIOGRAM REPORT Name: ALEN ALLISON Room #: 203-P ADM IN M.R.#: [id number] Admission: 07/06/21 Attend Phys: Jacquelyn Andrade Discharge: Date of : 59 Report #: [id number] [facility] ED Test Date: 2021-07-06 Test Time: 02:07:35 Pat Name: ALEN ALLISON Department: Room: 203 Gender: F Machine Operators: CELINA : 1955 Requested By: Jacquelyn Andrade Order Number: [id number] MD: Jose R Tolbert Measurements Intervals [place] Rate: 98 P: 254 MS: 152 QRS: -75 QRSD: 93 T: QT: 427 QTc: 546 Interpretive Statements Sinus rhythm LAD, consider left anterior fascicular block Anterior infarct, old Nonspecific T abnormalities, lateral leads Prolonged QT interval Compared to ECG 07/06/2021 01:33:10 Ectopic atrial rhythm now present T-wave abnormality now present Sinus rhythm no longer present Atrial abnormality no longer present Myocardial infarct finding still present Electronically Signed On 07-07-2021 9:34:45 CDT by Jose R Tolbert [email or web address] <ELECTRONICALLY SIGNED> By: Jose R Tolbert MD 07/07/21 0934 0207 Jose R Tolbert MD /EPI
--- NOTE | 2021-07-07 09:35 | EKG ---
[place] [address] [facility] [place] [address] ELECTROCARDIOGRAM REPORT Name: ALEN ALLISON Room #: 203-P ADM IN M.R.#: [id number] Admission: 07/06/21 Attend Phys: Jacquelyn Andrade Discharge: Date of : 59 Report #: [id number] [facility] ED Test Date: 2021-07-06 Test Time: 01:33:10 Pat Name: ALEN ALLISON Department: Room: 203 Gender: F Continuous Crusher Operator: : 1955 Requested By: Jacquelyn Andrade Order Number: [id number] MD: Jose R Tolbert Measurements Intervals [place] Rate: 96 P: 0 [place]: 130 QRS: -76 QRSD: 94 T: 242 QT: 426 QTc: 539 Interpretive Statements Sinus rhythm Left atrial enlargement LAD, consider left anterior fascicular block Low voltage, extremity leads Consider anterolateral infarct Prolonged QT interval Compared to ECG 07/06/2021 01:09:43 Atrial abnormality now present Low QRS voltage now present Myocardial infarct finding still present Electronically Signed On 07-07-2021 9:34:54 CDT by Jose R Tolbert [email or web address] <ELECTRONICALLY SIGNED> By: Jose R Tolbert MD 07/07/21 0934 2 Jose R Tolbert MD /EPI
--- NOTE | 2021-07-07 09:35 | EKG ---
[place] [address] [facility] [place] [address] ELECTROCARDIOGRAM REPORT Name: ALEN ALLISON Room #: 203-P ADM IN M.R.#: [id number] Admission: 07/06/21 Attend Phys: Jacquelyn Andrade Discharge: Date of : 59 Report #: [id number] [facility] ED Test Date: 2021-07-06 Test Time: 01:09:43 Pat Name: ALEN ALLISON Department: Room: 203 Gender: F Canteen Attendant: : 1955 Requested By: Jacquelyn Andrade Order Number: [id number] MD: Jose R Tolbert Measurements Intervals [place] Rate: 103 P: 253 FL: 141 QRS: -81 QRSD: 105 T: 117 QT: 457 QTc: 599 Interpretive Statements Sinus or ectopic atrial tachycardia LAD, consider left anterior fascicular block Probable anterior infarct, age indeterminate Prolonged QT interval Compared to ECG 07/06/2021 01:08:39 Q waves no longer present Myocardial infarct finding still present Electronically Signed On 07-07-2021 9:34:59 CDT by Jose R Tolbert [email or web address] <ELECTRONICALLY SIGNED> By: Jose R Tolbert MD 07/07/21 0934 0109 0109 Jose R Tolbert MD /EPI
--- NOTE | 2021-07-07 09:35 | EKG ---
[address] [place] [address] ELECTROCARDIOGRAM REPORT Name: ALEN ALLISON Room #: 203-P ADM IN M.R.#: [id number] Admission: 07/06/21 Attend Phys: Jacquelyn Andrade Discharge: Date of : 59 Report #: [id number] [facility] ED Test Date: 2021-07-06 Test Time: 01:08:39 Pat Name: ALEN ALLISON Department: Room: 203 Gender: F Websphere Portal Developer: : 1955 Requested By: Jacquelyn Andrade Order Number: [id number] MD: Jose R Tolbert Measurements Intervals [place] Rate: 101 P: 242 ND: 122 QRS: -87 QRSD: 105 T: QT: 467 QTc: 606 Interpretive Statements Sinus or ectopic atrial tachycardia LAD, consider left anterior fascicular block Probable anterior infarct, age indeterminate Prolonged QT interval Compared to ECG 07/05/2021 22:22:50 Q waves now present Prolonged QT interval now present Sinus rhythm no longer present Atrial abnormality no longer present T-wave abnormality no longer present Myocardial infarct finding still present Electronically Signed On 07-07-2021 9:35:12 CDT by Jose R Tolbert [email or web address] <ELECTRONICALLY SIGNED> By: Jose R Tolbert MD 07/07/21 0935 7 7 Jose R Tolbert MD /EPI
--- NOTE | 2021-07-07 19:04 | NUR ---
PT IS AXOX4, PLEASANT; VS SBP 90s, AFEBRILE, SA ON MONITOR. PT HAS BEEN RECEIVING ABX THERAPY AND FLUIDS THROUGHOUT THE NIGHT. CONTINUE ABX THERAPY. PT DTR AT THE BEDSIDE. DR LEE CONSULTED, DR COMER CONSULTED, CARDIOLOGY CONSULTED, DR OSHEA CONSULTED. POC IS TO CONTINUE TO MONITOR VS, ASSESS BP NEEDED, LUNGS FOR POSS FVE; ABX THERAPY. SPUTUM CULTURE SENT TO LAB; AWAITING RESULTS. FALL PRECAUTIONS IN PLACE. FREQUENT ROUNDING.
[2021-07-08 00:30] VITALS: BP 99/68
[2021-07-08 02:55] LABS: ABSOLUTE NEUTROPHILS 11.5 thou/uL (1.4-8.2); BASOPHILS 0.3 % (0.0-2.0); HEMATOCRIT 35.7 % (37.0-47.0); LYMPHOCYTES 8.8 % (24.0-44.0); MCH 29.5 pg (26.0-34.0); MCHC 31.8 g/dL (28.0-37.0); MCV 92.5 fL (80.0-100.0); MONOCYTES 14.4 % (1.0-8.0); PLATELET COUNT 149 thou/uL (150-400); POLYS 76.5 % (36.0-66.0); RBC 3.86 mil/uL (4.20-5.00); RDW 16.8 % (10.5-14.5); WBC 15.1 thou/uL (4.0-11.0)
[2021-07-08 02:56] LABS: CALCIUM 7.8 mg/dL (8.5-10.1); CREATININE 1.2 mg/dL (0.6-1.0); POTASSIUM 3.3 mmol/L (3.5-5.1)
[2021-07-08 02:57] LABS: HEMOGLOBIN 11.4 gm/dL (12.0-15.0)
[2021-07-08 04:19] VITALS: BP 96/63
--- NOTE | 2021-07-08 05:27 | NUR ---
SLEPT PART OF SHIFT. AWAKENED AT 0230 AND WATCHED TV FOR AWHILE. PATIENT WANTS TO HAVE VS ADZING AND BORING MACHINE HELPER FOR EVERY 30 MIN. SO SHE CAN WATCH HER BLOOD PRESSURE. SYS 80-105. WORKING ON GOALS AND PLAN OF CARE FOR NOC. SPOKE WITH DAUGHTER ON PHONE 3 TIMES TONIGHT. ASSIST UP TO COMODE NEEDED. CONTINUE TO ASSES CLOSELY.
--- NOTE | 2021-07-08 07:27 | EKG ---
[place] [address] [facility] [place] [address] ELECTROCARDIOGRAM REPORT Name: ALEN ALLISON Room #: 202-P ADM IN M.R.#: [id number] Admission: 07/06/21 Attend Phys: Jacquelyn Andrade Discharge: Date of : 59 Report #: [id number] [facility] Test Date: 2021-07-06 Test Time: 21:59:57 Pat Name: ALEN ALLISON Department: Room: 202 P Gender: F Service Plumber: GHANSHYAM : 1955 Requested By: Jacquelyn Andrade Order Number: [id number] MD: Zak Norman Measurements Intervals [place] Rate: 91 P: -15 [place]: 249 QRS: -70 QRSD: 79 T: QT: 408 QTc: 503 Interpretive Statements Sinus rhythm Prolonged [place] interval Left atrial enlargement LAD, consider left anterior fascicular block Anterior infarct, old Nonspecific T abnormalities, lateral leads Compared to ECG 07/06/2021 16:35:18 First degree AV block now present Atrial abnormality now present T-wave abnormality now present Sinus tachycardia no longer present Electronically Signed On 07-08-2021 7:27:02 CDT by Zak Norman [email or web address] <ELECTRONICALLY SIGNED> By: Zak Norman MD, FACC 07/08/21 0727 58 58 Zak Norman MD, FAC /EPI
[2021-07-08 07:30] VITALS: BP 105/67
--- NOTE | 2021-07-08 08:05 | EKG ---
[place] [address] [place] [address] ELECTROCARDIOGRAM REPORT Name: ALEN ALLISON Room #: 202- ADM IN M.R.#: [id number] Admission: 07/06/21 Attend Phys: Jacquelyn Andrade Discharge: Date of : 59 Report #: [id number] [facility] Test Date: 2021-07-08 Test Time: 07:51:46 Pat Name: ALEN ALLISON Department: Room: 202 Gender: F Dot Compliance Specialist: ALEJANDRINA : 1955 Requested By: Radha Pelayo Order Number: [id number] MD: Prateek Hansen Measurements Intervals [place] Rate: 108 P: TN: QRS: -82 QRSD: 100 T: 47 QT: 364 QTc: 488 Interpretive Statements Atrial flutter Left axis deviation Poor R wave progression Compared to ECG 07/06/2021 21:59:57 Atrial flutter has replaced sinus rhythm Electronically Signed On 07-08-2021 8:05:25 CDT by Prateek Hansen [email or web address] <ELECTRONICALLY SIGNED> By: Prateek Hansen MD, [facility] 07/08/21 0805 0751 075 Prateek Hansen MD, [facility] /EPI
[2021-07-08 09:43] LABS: ALBUMIN 2.1 g/dL (3.4-5.0); DIRECT BILIRUBIN 0.6 mg/dL (<0.1-0.2); TOTAL BILIRUBIN 1.5 mg/dL (0.2-1.0); TOTAL PROTEIN 5.1 g/dL (6.4-8.2)
[2021-07-08 11:00] VITALS: BP 95/68
[2021-07-08] MEDS ORDERED: VITAMIN D21250 MCG PO (13:06)
[2021-07-08 15:10] VITALS: BP 104/76
--- NOTE | 2021-07-08 20:47 | NUR ---
PT IS AXOX4, PLEASANT; C/O PAIN IN CHEST/BACK R/T COUGHING; VS SBP90s, AFEBRILE, AFIB/TACHY ON MONITOR. PT HAS BEEN UNABLE TO GET COMFORTABLE THROUGHOUT SHIFT DUE TO PAIN AND STATING SHE "FEELS HOT." PT REFUSED COREG DUE TO LOW BP IN AM/PM. DR CHAPPELL CONSULTED AND STATED SHE WOULD BE BACK ON SOTALOL. PAIN MGMT RX TYLENOL Q4 WITH NO RELIEF; PT BECAME TACHYCARDIC THIS PM. CARDIOLOGY CONSULTED AND SOAP MIXER ORDERED AMIODARONE BOLUS AND GTT STARTED ON PT. PT CONTINUES TO BE TACHYCARDIC WITH MVMT, AND PAIN. POC IS TO CONTINUE AMIO GTT, ABX THERAPY; WILL CONTINUE TO MONITOR BP, HR; LOW FALL PRECAUTIONS IN PLACE. FREQUENT ROUNDING
[2021-07-08 21:05] LABS: ANA INTERPRETATION Negative (())
[2021-07-08 21:54] VITALS: BP 124/79
[2021-07-09] VITALS (47 sets, daily range): BP systolic 36–184; BP diastolic 12–142
--- NOTE | 2021-07-09 01:28 | NUR ---
1999 UP TO COMODE WITH DAUGHTER. HR INCREASED TO 171 WHILE OUT OF BED. ONCE BACK IN BED HR 110-130'S. DENIES NEED FOR PAIN MEDICATION AT THIS TIME. 2199 DAUGHTER LEFT. PATIENT RESTING QUIETLY. TRAMODOL GIVEN FOR COMPLAINTS OF BACK AND CHEST PAIN. CALL TO DR. DAVIDSON/ 2219 DR. DAVIDSON RETURNED CALL. PATIENT ASYMPTOMATIC WITH HIGH HR AT THIS TIME. BP 124/79. NO NEW ORDERS, JUST WATCH. 2244 NEW IV SITE LEFT AC. REVIEWING ORDERS. 0 PATIENT WITH INCREASED RR 30'S. ENCOURAGED TO TAKE SLOW BREATHS, HOLDING HAND AND RUBBING BACK. PATIENT STATES SHE FEELS FULL IN STOMACH AND IT HURTS. PATIENT WRITHING IN BED AND CANT LAY STILL. STATES PAIN IN BACK IS BETTER. 2344 PATIENT BECOMING MORE AGITATED. MIKE ROGERS RN CHAIN MAKER LOOM CONTROL HERE FOR ASSISTANCE. UNABLE TO OBTAIN BLOOD PRESSUER. PATIENT STATES SHE FEELS UNCOMFORTABLE AND CANT LAY STILL. LUNGS CLEAR AND DECREASED. O2 SAT 97% BUT HARD TO OBTAIN, FINGERS COOL. CALL PLACED TO KASEY RENNER. 0001 LUNGS SOUNDS RALES NOW. DAVI CHAIN MAKER LOOM CONTROL AND KASEY RENNER HERE. 0020 ORDERS TO TRANSFER TO ICU. TRANSFERED PER BED. NOTIFIED DAUGHTER LATEAK OF STATUS CHANGE, RESPIRATORY RATE INCREASE AND AGITATION, AND TRANSFER TO ICU. SHE ASKED TO HAVE DAVI CHAIN MAKER LOOM CONTROL CALL AND GIVE AN UPDATE WHEN AVAILABLE. REPORT GIVEN TO JOSIAH CRESPO IN ICU.
[2021-07-09 02:10] LABS: BE(vivo) -24.3 mmol/L (-2 to +3); HCO3 5.2 mmol/L (22.0-26.0); PO2 517.5 mmHg (80.0-100.0); sO2 99.8 % (92.0-98.0)
[2021-07-09 02:12] LABS: PCO2 20.9 mmHg (35.0-45.0); pH 7.016 (7.360-7.450)
[2021-07-09 02:43] LABS: BE(vivo) -16.3 mmol/L (-2 to +3); HCO3 11.5 mmol/L (22.0-26.0); PCO2 34.1 mmHg (35.0-45.0); PO2 119.8 mmHg (80.0-100.0); pH 7.147 (7.360-7.450); sO2 97.3 % (92.0-98.0)
[2021-07-09 03:14] LABS: HEMATOCRIT 37.1 % (37.0-47.0); HEMOGLOBIN 11.2 gm/dL (12.0-15.0); MCH 29.8 pg (26.0-34.0); MCHC 30.1 g/dL (28.0-37.0); PLATELET COUNT 183 thou/uL (150-400); RBC 3.74 mil/uL (4.20-5.00)
[2021-07-09 04:51] LABS: BE(vivo) -26.8 mmol/L (-2 to +3); HCO3 7.6 mmol/L (22.0-26.0); PCO2 49.5 mmHg (35.0-45.0); PO2 53.1 mmHg (80.0-100.0); pH 6.802 (7.360-7.450); sO2 56.5 % (92.0-98.0)
[2021-07-09 04:58] LABS: ABSOLUTE NEUTROPHILS 8.3 thou/uL (1.4-8.2); ANISOCYTOSIS 1+; METAMYELOCYTES 1 %; NUCLEATED RBCS 2 /100WBC
[2021-07-09 04:59] LABS: BURR CELLS 4+
[2021-07-09 06:55] LABS: HEMATOCRIT 36.3 % (37.0-47.0); HEMOGLOBIN 10.6 gm/dL (12.0-15.0); MCH 29.9 pg (26.0-34.0); MCHC 29.2 g/dL (28.0-37.0); MCV 102.6 fL (80.0-100.0); PLATELET COUNT 118 thou/uL (150-400); RBC 3.54 mil/uL (4.20-5.00); RDW 19.1 % (10.5-14.5); WBC 11.3 thou/uL (4.0-11.0)
[2021-07-09 07:06] LABS: CALCIUM 8.5 mg/dL (8.5-10.1); CREATININE 2.1 mg/dL (0.6-1.0); MAGNESIUM 2.5 mg/dL (1.8-2.4); POTASSIUM 3.4 mmol/L (3.5-5.1); TOTAL BILIRUBIN 2.1 mg/dL (0.2-1.0); TOTAL PROTEIN 4.9 g/dL (6.4-8.2)
[2021-07-09 07:09] LABS: IgA 168 mg/dL (87-352); IgG 493 mg/dL (586-1602); IgM 26 mg/dL (26-217)
[2021-07-09 07:27] LABS: APTT 75.2 Seconds (24.5-32.8); INR 3.15; PROTIME 32.5 Seconds (10.5-12.1)
--- NOTE | 2021-07-09 07:27 | EKG ---
[address] [place] [address] ELECTROCARDIOGRAM REPORT Name: ALEN ALLISON Room #: 246-P ADM IN M.R.#: [id number] Admission: 07/06/21 Attend Phys: Jacquelyn Andrade Discharge: Date of : 59 Report #: [id number] [facility] Test Date: 2021-07-09 Test Time: 02:37:47 Pat Name: ALEN ALLISON Department: Room: 246 P Gender: F Vacation Planner: KEN : 1955 Requested By: Jacquelyn Andrade Order Number: [id number] MD: Zak Norman Measurements Intervals [place] Rate: 179 P: 0 [place]: 49 QRS: -75 QRSD: 103 T: 72 QT: 271 QTc: 468 Interpretive Statements Supraventricular tachycardia LAD, consider left anterior fascicular block Anteroseptal infarct, age indeterminate Compared to ECG 07/09/2021 00:38:54 Q waves no longer present Prolonged QT interval no longer present Myocardial infarct finding still present Electronically Signed On 07-09-2021 7:27:38 CDT by Zak Norman [email or web address] <ELECTRONICALLY SIGNED> By: Zak Norman MD, FACC 07/09/21 0727 0237 0237 Zak Norman MD, [facility] /EPI
--- NOTE | 2021-07-09 07:27 | EKG ---
[address] [place] [address] ELECTROCARDIOGRAM REPORT Name: ALEN ALLISON Room #: 246-P ADM IN M.R.#: [id number] Admission: 07/06/21 Attend Phys: Jacquelyn Andrade Discharge: Date of : 59 Report #: [id number] [facility] Test Date: 2021-07-09 Test Time: 00:38:54 Pat Name: ALEN ALLISON Department: Room: 246 P Gender: F Supervising Broker: KEN : 1955 Requested By: Jacquelyn Andrade Order Number: [id number] MD: Zak Norman Measurements Intervals [place] Rate: 131 P: -65 [place]: 82 QRS: 259 QRSD: 107 T: 9 QT: 351 QTc: 519 Interpretive Statements Sinus or ectopic atrial tachycardia Abnormal lateral Q waves Anterior infarct, old Prolonged QT interval Compared to ECG 07/08/2021 07:51:46 Q waves now present Myocardial infarct finding now present Prolonged QT interval now present Atrial flutter no longer present Left-axis deviation no longer present Poor R-wave progression no longer present Electronically Signed On 07-09-2021 7:27:08 CDT by Zak Norman [email or web address] <ELECTRONICALLY SIGNED> By: Zak Norman MD, FAC 07/09/21 0727 Zak Norman MD, FAC /EPI
--- NOTE | 2021-07-09 08:04 | NUR ---
ORDERS FOR EVAL AND TREAT HOWEVER Pt TRANSFERRED TO ICU. WILL PLACE ON HOLD AND AWAIT NEW ORDERS TO SEE WHEN APPROPRIATE
--- NOTE | 2021-07-09 08:07 | NUR ---
esa wrist restraints intact since on vent. afib, see documentation for several vasoactive gtts, anesthesia present at bedside to place r radial yannick. bp abruptly deteriorating, yannick placed with appropiate waveform. flat arterial waveform, no nibp, hr-40's without palpable pulses. code called. please see code documentation for details.
--- NOTE | 2021-07-09 08:15 | NUR ---
epi increased to 20 mcg/min.
--- NOTE | 2021-07-09 08:33 | NUR ---
Chart review, lauren partida called this am. Unable to visit with patient or family. Will cont following as needed for support and dc planning. Cm team assisted one family member to icu and nurse took her back to [facility].
[2021-07-09 08:39] LABS: ABSOLUTE NEUTROPHILS 7.6 thou/uL (1.4-8.2); ANISOCYTOSIS 1+; MACROCYTES 2+; NUCLEATED RBCS 2 /100WBC; PLATELET ESTIMATE NORMAL
--- NOTE | 2021-07-09 09:16 | NUR ---
RECIEVED PT FROM 2N- PT RESTLESS, IN RESP DISTRESS -LUNGS COARSE RHONCI THROUGHT, RR 30'S ON BIPAP. MONITOR AFIB WITH HR 130'S 140. AMIODORONE GTT INFUSING. NO UO AFTER LASIX. COLOR ASHEN. INTUBATED PER ER DOCTOR, HEMOPTYSIS FROM ETT NOTED. PT WENT PEA AFTER INTUBATION. SEE CODE SHEET.
--- NOTE | 2021-07-09 09:22 | NUR ---
DID HAVE RETURN OF PULSE, ON MULTIPLE PRESSORS TO KEEP MAP >65. PT COLD, ONLY PALPATE CAROTID PULSE. BP LABILE. ABG DONE AND CRITICAL PH OF 6.[address] RIDER. ORDERS RECIEVED BICARB GIVEN. PT ON A LOW DOSE OF FENTANYL GTT FOR SEDATION. TEMP 93.-PLACED ON BILLY HUGGER. AM LABS DRAWN. CONT PLAN OF CARE
--- NOTE | 2021-07-09 12:09 | NUR ---
family present in waiting room including Chad Harvey- daughter. Dr. Carroll requested to have family come into the icu to observe code blue in progress. family opted to observe throught the icu glass window/doors. code called at [address] Carroll's discussion with family. chad Hou provided much support to family. all family members rotated in and out of pt room for closure. see nursing summary, donor referral notification form and restraint report worksheet. [employer] notified. security and home notified.
[2021-07-09 13:08] LABS: HIV ANTIBODY Non Reactive (Non Reactive)
== END 2021-07-09 08:36 | DRG 871 ==
LOC: ER 21:22 → 2N 07-06 01:52 → EROBS 07-06 01:52 → 2N 07-06 08:10 → ICU 07-09 00:25
PROVIDERS: Emergency Medicine; Internal Medicine; Internal Medicine Pulmonary Disease; Nurse Practitioner; Nurse Practitioner Family; Pediatrics; Specialist; ADMIT Hospitalist; ATTEND Hospitalist
PROC: B54MZZA Ultrasonography of Right Upper Extremity Veins, Guidance (ICD-10-PCS; principal; 2021-07-09)
PROC: 0BH17EZ Insertion of Endotracheal Airway into Trachea, Via Natural or Artificial Opening (ICD-10-PCS; principal; 2021-07-09)
PROC: 03HY32Z Insertion of Monitoring Device into Upper Artery, Percutaneous Approach (ICD-10-PCS; principal; 2021-07-09)
PROC: 5A1935Z Respiratory Ventilation, Less than 24 Consecutive Hours (ICD-10-PCS; principal; 2021-07-09)
PROC: 4A133B1 Monitoring of Arterial Pressure, Peripheral, Percutaneous Approach (ICD-10-PCS; principal; 2021-07-09)
PROC: 4A133J1 Monitoring of Arterial Pulse, Peripheral, Percutaneous Approach (ICD-10-PCS; principal; 2021-07-09)
DX: A41.9 Sepsis, unspecified organism (principal); J18.9 Pneumonia, unspecified organism; I50.23 Acute on chronic systolic (congestive) heart failure; J96.01 Acute respiratory failure with hypoxia; R65.21 Severe sepsis with septic shock; I42.9 Cardiomyopathy, unspecified; I47.2 Ventricular tachycardia; J91.8 Pleural effusion in other conditions classified elsewhere; N17.9 Acute kidney failure, unspecified; I48.19 Other persistent atrial fibrillation; R04.2 Hemoptysis; I95.9 Hypotension, unspecified; E78.5 Hyperlipidemia, unspecified; I11.0 Hypertensive heart disease with heart failure; E80.4 Gilbert syndrome; I46.9 Cardiac arrest, cause unspecified; K76.0 Fatty (change of) liver, not elsewhere classified; Z20.822 Contact with and (suspected) exposure to COVID-19; Z86.718 Personal history of other venous thrombosis and embolism; Z92.21 Personal history of antineoplastic chemotherapy; Z79.899 Other long term (current) drug therapy; Z91.09 Other allergy status, other than to drugs and biological substances; Z90.11 Acquired absence of right breast and nipple; Z85.3 Personal history of malignant neoplasm of breast; Z95.810 Presence of automatic (implantable) cardiac defibrillator; Z87.891 Personal history of nicotine dependence; Z88.1 Allergy status to other antibiotic agents
CPT/HCPCS: 10081; 50455; 62110; 62900; 65040